=== PATIENT | male | born 1955 ===

== ENCOUNTER → 2023-01-19 | Outpatient (CLI) | payer MEDICARE | LOC: LAB SHORT 13:55 → LAB 13:55 | DX: L30.9 Dermatitis, unspecified (principal) | CPT/HCPCS: 88312 ==

== ENCOUNTER → 2023-02-23 | Outpatient (CLI) | payer MEDICARE | LOC: LAB 14:13 → LAB SHORT 14:13 → PLD 14:13 | DX: R21 Rash and other nonspecific skin eruption (principal) | CPT/HCPCS: 88312 ==